=== PATIENT | female | born 1985 | race Caucasian/White ===

== ENCOUNTER 2018-08-20 07:35 | Emergency (ER) | payer SELFPAY ==
[2018-08-20 08:31] LABS: Bacteria,Urine 1+ /HPF (Negative); Bilirubin,Urine NEG (Negative); Blood,Urine LG (Negative); Color,Urine Red (Yellow); Mucus,Urine FEW /HPF; Urobilinogen,Urine < 2.0 mg/dL (<2.0)
[2018-08-20 09:00] LABS: Basophils # (Auto) 0.1 K/mm3 (0.0-0.1); Basophils % (Auto) 1.3 % (0.0-1.8); Eosinophils # (Auto) 0.1 K/mm3 (0.0-0.4); Eosinophils % (Auto) 1.7 % (0.0-4.3); Hematocrit 36.5 % (30.3-42.9); Hemoglobin 12.2 gm/dl (10.1-14.3); Lymphocytes # (Auto) 2.3 K/mm3 (1.2-5.4); Lymphocytes % (Auto) 32.8 % (13.4-35.0); Mean Corpuscular HGB Conc 33 % (30-34); Mean Corpuscular Hemoglobin 29 pg (28-32); Mean Corpuscular Volume 88 fl (79-97); Monocytes # (Auto) 0.6 K/mm3 (0.0-0.8); Monocytes % (Auto) 8.3 % (0.0-7.3); Platelet Count 344 K/mm3 (140-440); Red Blood Count 4.15 M/mm3 (3.65-5.03); Red Cell Distribution Width 13.8 % (13.2-15.2)
--- NOTE | 2018-08-20 10:26 | Emergency Department Report ---
ED HPI - General Chief complaint: Vaginal Bleeding Stated complaint: BLEEDING Time Seen by Provider: 08/20/18 10:12 Source: patient Mode of arrival: Ambulatory Limitations: No Limitations - History of Present Illness MD Complaint: vaginal bleeding -: Sudden, days(s) (1) Radiation: none Consistency: intermittent Improves with: none Worsens with: none Associated symptoms: denies other symptoms, vaginal bleeding. denies: nausea/ vomiting, vaginal discharge, abdominal pain, dysuria, headache, vision changes, malaise, dysparuenia, rash, seizure, shortness of breath, syncope, weakness Vaginal bleeding: light, clots :: Yes Number of weeks : 4 OB History - Current : no complications OB History - Previous Pregnancies: no complications Pre- care: none - Related Data : 2 Para: 1 Ab: 1 Allergies Allergy/AdvReac Type Severity Reaction Status Date / Time No Known Allergies Allergy Unverified 08/20/18 07:40 ED Review of Systems ROS: Stated complaint: BLEEDING Other details as noted in HPI Comment: All other systems reviewed and negative Constitutional: denies: chills, fever Eyes: denies: eye pain ENT: denies: ear pain Respiratory: denies: cough Cardiovascular: denies: chest pain Endocrine: denies: excessive sweating Gastrointestinal: denies: abdominal pain, nausea, vomiting, diarrhea, constipation, hematemesis, melena Genitourinary: other (pos home preg test. lmp last month. she was fine until last pm started to have vag bleed which is light with some clots. no pain. ). denies: urgency, dysuria, frequency, hematuria, discharge, dyspareunia Skin: denies: rash, lesions Neurological: denies: headache, weakness Psychiatric: denies: anxiety, depression Hematological/Lymphatic: denies: easy bleeding ED Past Medical Hx - Past Medical History Previous Medical History?: Yes Additional medical history: Childbirth - Surgical History Past Surgical History?: Yes Additional Surgical History: - Family History Family history: no significant - Social History Smoking Status: Never Smoker Substance Use Type: None ED Physical Exam - General Limitations: No Limitations General appearance: in no apparent distress - Head Head exam: Present: normocephalic - Eye Eye exam: Present: PERRL - ENT ENT exam: Present: mucous membranes moist - Neck Neck exam: Present: normal inspection - Respiratory Respiratory exam: Present: normal lung sounds bilaterally - Cardiovascular Cardiovascular Exam: Present: regular rate - GI/Abdominal GI/Abdominal exam: Present: soft, normal bowel sounds. Absent: distended, tenderness, guarding, rebound, rigid, diminished bowel sounds, hyperactive bowel sounds, hypoactive bowel sounds, organomegaly, mass, bruit, pulsatile mass , hernia - Rectal Rectal exam: Present: deferred - External exam: Present: bleeding. Absent: erythema, swelling, lesions, lacerations, ecchymosis Speculum exam: Present: vaginal bleeding, other (os closed). Absent: erythema, vaginal discharge, cervical discharge, foreign body, tissue, laceration Bi-manual exam: Absent: cervical motion tendernes, adnexal tenderness, adnexal mass, uterine enlargement, uterine tenderness - Extremities Exam Extremities exam: Present: normal inspection, full ROM. Absent: tenderness - Back Exam Back exam: Present: normal inspection - Neurological Exam Neurological exam: Present: alert, oriented X3 - Psychiatric Psychiatric exam: Present: normal affect, normal mood - Skin Skin exam: Present: warm, dry, intact ED Course Vital Signs 08/20/18 07:41 Temperature 97.8 F Pulse Rate 80 Respiratory 18 Rate Blood Pressure 141/84 O2 Sat by Pulse 100 Oximetry - Reevaluation(s) Reevaluation #1: 08/20/18 12:09 to er w pos home preg test lmp last month- about 5 weeks ago she states now w vag bleeding. hcg noted 500 range us noted no sac light bleeding w pain or associated s/s rh pos no rhogam needed in event spont ab. discussed w pt. she will dc and follow up with obgyn on wednesday. ED Medical Decision Making - Lab Data Result diagrams: 08/20/18 08:01 - Radiology Data Radiology results: report reviewed, image reviewed - Medical Decision Making beta hcg in 500's w pos home preg us noted no sac rh pos no pain and vss will dc home w follow up with Dr Hoffman on Wednesday for repeat beta Hcg - Differential Diagnosis ro spont ab vs. early preg with implantation spotting Critical care attestation.: If time is entered above; I have spent that time in minutes in the direct care of this critically ill patient, excluding procedure time. ED Disposition Clinical Impression: Miscarriage, threatened, early Disposition: DC-01 TO HOME OR SELFCARE Is pt being admited?: No Does the pt Need Aspirin: No Condition: Stable Instructions: Spontaneous Miscarriage (ED), Threatened Miscarriage (ED) Additional Instructions: pelvic rest- no sex. no tampons. rest diet as tolerated FOLLOW UP WITH OBGYN ON WEDNESDAY CALL OFFICE AND TELL THEM YOU WERE SEEN IN THE ER THEY WILL SEE YOU TO REPEAT YOUR LAB WORK ER if worsening symptoms. tylenol for pain or discomfort Referrals: ADRIENNE HOFFMAN MD [Staff Physician] - 3-5 Days Time of Disposition: 11:56
--- NOTE | 2018-08-20 11:39 | Ultrasound Report ---
FINAL REPORT EXAM: US OB < = 14 WEEKS FETUS HISTORY: Vaginal bleeding TECHNIQUE: Early obstetrical ultrasound was performed. PRIORS: None. FINDINGS: No intrauterine gestational sac seen. The uterus measures 9.0 x 4.2 x 5.6 cm. Endometrium is 13 mm. There is no focal uterine mass seen. Right ovary is not visualized. Left ovary measures 2.7 x 1.5 x 1.9 cm. There is no abnormal adnexal mass seen. There is no free fluid. IMPRESSION: There is no intrauterine gestational sac, abnormal adnexal mass, or pelvic free fluid seen. In the setting of a positive test, differential considerations include very early IUP, spontaneous and ectopic . Correlate clinically.
--- NOTE | 2018-08-20 11:40 | Ultrasound Report ---
FINAL REPORT EXAM: US OB TRANSVAGINAL HISTORY: VAG BLEED TECHNIQUE: Early obstetrical ultrasound was performed. Transvaginal scanning PRIORS: None. FINDINGS: There is no intrauterine gestational sac. The uterus measures 9.0 x 4.2 x 5.6 cm. Endometrial thickness is 13 mm. There is no uterine mass seen. Right ovary not visualized. Left ovary measures 2.7 x 1.5 x 1.9 cm. There is no abnormal adnexal mass. There is no free fluid. IMPRESSION: There is no intrauterine gestational sac, abnormal adnexal mass, or pelvic free fluid seen. In the setting of a positive test, differential considerations include very early IUP, spontaneous and ectopic . Correlate clinically.
[2018-08-20 12:18] VITALS: BP 135/88
== END 2018-08-20 12:19 | disposition home or self-care (01) ==
LOC: ED 07:35
DX: O20.0 Threatened abortion (principal); Z3A.01 Less than 8 weeks gestation of pregnancy
CPT/HCPCS: 36415; 76801; 76817; 81001; 84702; 85025; 86850; 86900; 86901; 99284